=== PATIENT | male | born 1995 | race Caucasian/White ===

== ENCOUNTER 2023-09-05 12:50 | Emergency (ER) | payer BC ==
[~2023-09-05] VITALS: Ht 175.2 cm; Wt 67.1 kg
[2023-09-05] MEDS ORDERED: Tdap Vaccine 0.5 ML SYR (Adult Vaccine) IM ONE (13:15)
[2023-09-05] MEDS ORDERED: Bacitracin Zinc 14 GM TUBE T ONE (13:15)
[2023-09-05] MEDS ORDERED: CEPHALEXIN500 M1 PO (13:52)
[2023-09-05] MEDS ORDERED: CEPHALEXIN 500 MG CAP PO ONE (13:55)
== END 2023-09-05 15:35 | disposition home or self-care (01) ==
LOC: ED 12:50
DX: S51.842A Puncture wound with foreign body of left forearm, initial encounter (principal); W22.8XXA Striking against or struck by other objects, initial encounter; Y93.89 Activity, other specified; Y92.89 Other specified places as the place of occurrence of the external cause; Y99.0 Civilian activity done for income or pay

== ENCOUNTER 2024-06-05 15:13 | Emergency (ER) | payer SELFPAY ==
[~2024-06-05] VITALS: Ht 177.8 cm; Wt 93.9 kg
[~2024-06-05 15:13] MED LIST: CEPHALEXIN500 M1 PO
[2024-06-05] MEDS ORDERED: Bacitracin Zinc 14 GM TUBE T ONE (16:15)
== END 2024-06-05 16:05 | disposition home or self-care (01) ==
LOC: ED 15:13
DX: S71.111A Laceration without foreign body, right thigh, initial encounter (principal); F17.210 Nicotine dependence, cigarettes, uncomplicated; Z79.899 Other long term (current) drug therapy; W26.8XXA Contact with other sharp object(s), not elsewhere classified, initial encounter; Y93.89 Activity, other specified; Y92.89 Other specified places as the place of occurrence of the external cause; Y99.8 Other external cause status